=== PATIENT | female | born 1965 | race Caucasian/White ===

== ENCOUNTER 2024-01-26 06:28 | Day surgery (SDC) | payer OTHER ==
[~2024-01-26] VITALS: Ht 167.6 cm; Wt 84.1 kg
[~2024-01-26 06:28] MED LIST: BACL20TA PO; CARV12.530 PO; CHOL200059 PO; LEVO25TA9 PO; LISI10TA24 PO; LORA10TA7 PO; MONT-40 PO; PRED-729 PO; SERT-440 PO; SIMV-46 PO; SODIUM CHLORIDE 0.9% 1,000 ML ONE; SPIR-37 PO
[2024-01-26] MEDS ORDERED: DiphenhydrAMINE HCL 50 MG/ML VIAL ONE (07:14)
[2024-01-26] MEDS ORDERED: ATROPINE SULFATE 0.1 MG/ML 10 ML SYRINGE IVP ONE (07:14)
[2024-01-26] MEDS ORDERED: NALOXONE HCL 0.4 MG/ML VIAL ONE (07:14)
[2024-01-26] MEDS ORDERED: SODIUM TETRADECYL SULFATE 3% 60 MG/2 ML VIAL IVP ONE (07:14)
[2024-01-26] MEDS ORDERED: FLUMAZENIL 0.1 MG/ML 5 ML VIAL IVP ONE (07:14)
[2024-01-26] MEDS ORDERED: EPINEPHrine 1:10,000 [1 MG/10 ML] SYRINGE ONE (07:14)
[2024-01-26] MEDS ORDERED: FentaNYL CITRATE PF 100 MCG/2 ML VIAL ONE (07:57)
[2024-01-26] MEDS ORDERED: MIDAZOLAM HCL 2 MG/2 ML VIAL ONE (07:57)
[2024-01-26] MEDS: SODIUM CHLORIDE 0.9% 1,000 ML IV ONE (09:14)
[2024-01-26 09:21] VITALS: PULSE 75; RESP 18; O2SAT 97
[2024-01-26] MEDS: FentaNYL CITRATE PF 100 MCG/2 ML VIAL IVP ONE (09:24)
[2024-01-26] MEDS: MIDAZOLAM HCL 2 MG/2 ML VIAL IVP ONE (09:24)
[2024-01-26] MEDS ORDERED: MethylPREDNISolone SOD SUCC 125 MG/2 ML VIAL ONE (09:36)
[2024-01-26] MEDS: MethylPREDNISolone SOD SUCC 125 MG/2 ML VIAL IVP ONE (10:17)
== END 2024-01-26 11:50 | disposition home or self-care (01) ==
LOC: SURGERY 06:28
PROVIDERS: ATTEND Internal Medicine Critical Care Medicine
DX: R05.3 Chronic cough (principal); R06.1 Stridor; I10 Essential (primary) hypertension; E11.9 Type 2 diabetes mellitus without complications; E78.00 Pure hypercholesterolemia, unspecified; J43.9 Emphysema, unspecified; M19.90 Unspecified osteoarthritis, unspecified site; Z90.49 Acquired absence of other specified parts of digestive tract; Z95.0 Presence of cardiac pacemaker; Z96.653 Presence of artificial knee joint, bilateral; Z98.890 Other specified postprocedural states; Z91.040 Latex allergy status; Z88.8 Allergy status to other drugs, medicaments and biological substances
CPT/HCPCS: 93005; 87206; 87101; 87220; 87070; 88108; 31623; 31624; 71045; 87015; J3010; J2250; J2919; J7030; J0171; J0461; J1200; J2310; J3490